=== PATIENT | female | born 1990 | race Caucasian/White ===

== ENCOUNTER 2016-09-03 15:38 | Emergency (ER) | payer OTHER ==
[~2016-09-03] VITALS: Ht 170.2 cm; Wt 146.7 kg
[2016-09-03 15:40] VITALS: BP 162/110
[2016-09-03] MEDS ORDERED: LIDOCAINE 1%, 20ML INFIL ONE (16:30)
[2016-09-03] MEDS ORDERED: LIDOCAINE 1%, 20ML ONE (16:32)
[2016-09-03] MEDS ORDERED: BACITRACIN ZINC OINT 500U/GM, 0.9 GM ONE (17:13)
== END 2016-09-03 16:55 | disposition home or self-care (01) ==
LOC: ED 16:49
DX: S61.411A Laceration without foreign body of right hand, initial encounter (principal); J45.909 Unspecified asthma, uncomplicated; W25.XXXA Contact with sharp glass, initial encounter; Y93.89 Activity, other specified; Y99.8 Other external cause status; Y92.89 Other specified places as the place of occurrence of the external cause
CPT/HCPCS: 12001; 99283